=== PATIENT | male | born 1960 | race Hispanic/Latino ===

== ENCOUNTER 2017-07-08 09:49 | Outpatient (CLI) | payer OTHER ==
--- NOTE | 2017-07-08 11:20 | XRay Report ---
ABDOMEN RADIOGRAPH INDICATION: Calculus of ureter. COMPARISON: None similar. FINDINGS: Frontal abdominal radiograph demonstrates satisfactory radiographic appearance of a right double-J ureteral stent. No definite calculus identified. Upper abdomen, including the lung bases though excluded from the radiographic margin. Nonobstructive bowel gas pattern. Left hip hardware incompletely imaged. Mild lumbar levoscoliosis apex about L3-L4 with lower lumbar degenerative changes. CONCLUSION: Right ureteral stent and few other incidental findings, as above. Thank you for the opportunity to participate in this patient's care.
== END 2017-07-08 09:50 | disposition home or self-care (01) ==
LOC: XRAY 09:49
PROVIDERS: ATTEND Urology
DX: N20.1 Calculus of ureter (principal); M41.86 Other forms of scoliosis, lumbar region; M47.896 Other spondylosis, lumbar region
CPT/HCPCS: 74000

== ENCOUNTER 2021-12-26 12:15 | Outpatient (CLI) | payer BC ==
--- NOTE | 2021-12-26 14:40 | Cat Scan Report ---
CT ABDOMEN AND PELVIS WITH AND WITHOUT CONTRAST: HISTORY: Right testicular pain COMPARISON: No relevant comparison TECHNIQUE: CT images of the abdomen was obtained before and following administration of intravenous c ontrast. All CT scans at this location are performed using CT dose reduction for ALARA by means of a utomated exposure control CONTRAST: 100 ml of Omnipaque 300. FINDINGS: CT ABDOMEN: Lung Bases: No significant abnormality. Liver: No significant abnormality. Biliary: No significant abnormality. Spleen: No significant abnormality. Unenlarged. Pancreas: No significant abnormality. Adrenals: No significant abnormality. Kidneys: Both kidneys are normal size, contour and position. At least 3 calyceal stones are identifie d in the right kidney. A punctate stone is identified near the superior pole. There are 2 stones near the lower pole measuring 3 mm and 6 mm. Within the left kidney there are also 3 stones. There is a 2 mm stone near the superior pole. Punctate stones are identified at the superior and inferior pole. N o evidence for ureteral stones or hydronephrosis. No cystic disease or mass. Lymphatics: No lymphadenopathy. Vasculature: No significant abnormality. Bowel/Peritoneum: No significant abnormality. No free air. No free fluid. The appendix is not confide ntly identified. CT PELVIS: : There are 2 stones in the right side of the bladder measuring 2 mm and 5 mm. The bladder is other zarate unremarkable. The prostate gland is normal size. On the most inferior images there appears to be a cyst in the right side of the scrotal sac measuring 1.7 cm which probably represents an epididymal cyst. Osseous Structures: No acute osseous abnormality. There is approximate 5 mm anterolisthesis of L4 wit h respect to L3 and L5. Moderate to severe degenerative changes are identified in the lower lumbar sp ine. There are multiple chronic right pelvic fractures including the superior and inferior rami and r ight pubic bone. There is been previous internal stabilization of the left femoral neck. No acute oss eous abnormality is detected. Additional Findings: None IMPRESSION: 1. Bilateral nonobstructing nephrolithiasis as described. 2. Bladder stones. 3. Probable right epididymal cyst measuring 1.7 cm. 4. Chronic osseous findings as outlined above. Signer Name: Bob Hunter Jr, MD Signed: 12/26/2021 2:36 PM Workstation Name: [id number]
== END 2021-12-26 12:16 | disposition home or self-care (01) ==
LOC: CT 12:15
PROVIDERS: ATTEND Urology
DX: N20.0 Calculus of kidney (principal); N21.0 Calculus in bladder; N50.3 Cyst of epididymis; M47.816 Spondylosis without myelopathy or radiculopathy, lumbar region
CPT/HCPCS: 74178; Q9967